=== PATIENT | female | born 1985 | race Two or more races ===

== ENCOUNTER → 2024-03-05 | Outpatient (CLI) | payer MEDICAID, SELFPAY ==
--- NOTE | 2024-03-05 08:00 | XR_ITS ---
Examination: MRI lumbar spine without contrast Date and time of exam: March 05, 2024 7057 hours Compared to July 26, 2021 INDICATIONS: Low back pain beginning 3 years ago increasing in severity paresthesias in the legs difficulty with walking Technique: Multiple MRI axial and sagittal sections lumbar spine. Sagittal T2-weighted images, TR 3500, TE 118 T1 weighted transverse sections, TR 688 T8.5, T2-weighted sagittal sections T1 weighted sagittal sections TR 621, TE 30 T2 axial sections, TR 4, 190, TE 84. Findings: Adequate alignment lumbar vertebral bodies on the lateral view No lumbar fracture Normal marrow signal lumbar vertebral bodies Disc desiccation at the lower 2 lumbar levels No spondylolisthesis L5-S1 7 mm extruded central disc L4-L5 4 mm central lumbar disc bulge with annular disc tear posterior central disc margin L3-L4 no disc protrusion L2-L3 no disc protrusion L1-L2 no disc protrusion IMPRESSION: L5-S1 7 mm extruded central disc L4-L5 4 mm central lumbar disc bulge with annular disc tear posterior central disc margin
== END | disposition home or self-care (01) ==
LOC: SMRI 07:51
PROVIDERS: PCP Nurse Practitioner Family; Referring Provider Nurse Practitioner Family; Visit Provider Nurse Practitioner Family
DX: M54.50 Low back pain, unspecified (principal); M51.27 Other intervertebral disc displacement, lumbosacral region; M51.369 Other intervertebral disc degeneration, lumbar region without mention of lumbar back pain or lower extremity pain
CPT/HCPCS: 72148

== ENCOUNTER → 2024-09-24 | Outpatient (CLI) | payer MEDICAID, SELFPAY ==
--- NOTE | 2024-09-24 13:00 | XR_ITS ---
Examination: Transvaginal ultrasound of the pelvis, complete Technique: Transvaginal sonographic images pelvis performed using hill scale imaging Exam date and time: September 24, 2024 1344 hours INDICATIONS: Pelvic pain 3 years, diagnosis endometriosis FINDINGS: Uterus 10.1 cm, endometrial stripe 1.0 cm No uterine mass or intrauterine gestation Right ovary 3.0 cm arterial flow 13 mm follicular cyst smaller follicles Left ovary 2.1 cm arterial flow small follicles IMPRESSION: Negative examination.
--- NOTE | 2024-09-24 13:00 | XR_ITS ---
Examination: Abdomen sonogram, complete Date and time of exam: September 24, 2024 1331 hours INDICATIONS: Left upper abdominal pain beginning 2 years ago, cholecystectomy. Technique: Multiple real-time grayscale transabdominal sonographic images of the abdomen have been obtained. Findings: Absent gallbladder. Normal common bile duct 0.5 cm Pancreatic head 1.9 cm Aorta not enlarged. Liver 13.6 cm fatty infiltration. Normal hepatopedal portal venous flow Patent IVC Right kidney 11.8 cm renal cortex 1.8 cm Left kidney 10.5 cm cortex 1.8 cm Mild left renal parenchymal scar formation Spleen 9.6 cm IMPRESSION: Normal common bile duct Liver normal size fatty infiltration.
== END | disposition home or self-care (01) ==
LOC: CDIM 13:04
DX: K76.0 Fatty (change of) liver, not elsewhere classified (principal); R10.2 Pelvic and perineal pain
CPT/HCPCS: 76700; 76830

== ENCOUNTER 2024-11-10 09:47 | Emergency (ER) | payer MEDICAID, SELFPAY ==
[2024-11-10 09:47] VITALS: BMI 23.8
[2024-11-10 10:24] VITALS: BP 121/62; PULSE 64; RESP 18; TEMP 37.1; O2SAT 98
--- NOTE | 2024-11-10 10:58 | EDNOTE_ITS ---
ED Female Urogenital RME/HPI General Chief complaint: Urogenital-Female Stated complaint: PAIN WITH URINATION x 1 DAYS Time Seen by Provider: 11/10/24 09:54 Arrival date/time: 11/10/24 09:47 This is a 39-year-old female that comes into the emergency room with complaints of dysuria, urinary frequency, urgency oliguria. Patient states that she has been having frequent UTIs. Her primary doctor is sending her to a urologist. Patient states that her last UTI was about a month ago. Patient denies any other symptoms. Related Data Previous Rx's ?Medication ?Instructions ?Recorded acetaminophen 500 mg capsule 1,000 mg (2 x 500 mg) PO Q6H PRN 07/26/21 fever or pain #30 caps cyclobenzaprine 10 mg tablet 10 mg PO TID PRN muscle s pasm #30 07/26/21 tabs ibuprofen 800 mg tablet 800 mg PO Q8H PRN pain #30 t abs 01/12/23 Allergies Allergy/AdvReac Type Severity Reaction Status Date / Time No Known Allergies Allergy Verified 11/10/24 09:50 Review of Systems Review of Systems Systems Reviewed: All systems reviewed, normal except as documented Past Medical History Past Medical History NEUROLOGIC: Negative Neurological Disorders or Seizures CARDIAC: Negative Cardiac Disorders or Congestive Heart Failure RESPIRATORY: Negative Chronic Obstructive Pulmonary Disease (COPD) GASTROINTESTINAL: Positive Gastrointestinal Disorders (CHRONIC CONSTIPATION); Negative Hepatitis or Colorectal Cancer GENITOURINARY: Negative Genitourinary Disorders, Renal Disease or Prostate Cancer REPRODUCTIVE: Positive Previous Pregnancies; Negative Breast Cancer, Endometriosis, Pelvic Inflammatory Disease, Testicular Cancer or Uterine Prolapse MUSCULOSKELETAL: Negative Musculoskeletal Disorders, Bone Cancer or Carpal Tunnel Syndrome ENT: Negative Cataracts ENDOCRINE: Negative Endocrine Disorders, Diabetes Mellitus Type 1 or Diabetes Mellitus Type 2 HEMATOLOGIC: Negative Blood Disorders or Anemia OTHER HISTORY: Positive Hospitalization (CHILDBIRTH); Negative Autoimmune Disease, Down Syndrome, Developmental Delay, Shingles, Falls, Blood Transfusions, Blood Transfusion Reaction, Anesthesia Reactions, Organ Transplant, Chemotherapy, Radiation Therapy, Hyperbaric Therapy, MRSA, VRSA, Vancomycin-Resistant Enterococci, Human Immunodeficiency Virus (HIV), Chicken Pox, Measles, Mumps, Rubella (Welsh Measles), Pertussis, Clostridium Difficile, Cancer, Breast Cancer, Cervical Cancer, Colorectal Cancer, Lung Cancer, Ovarian Cancer, Prostate Cancer or Testicular Cancer Family History FAMILY HISTORY: Negative Family Psychiatric Problems, Family Respiratory Disorders, Family Cardiac Disorders, Family Gastrointestinal Problems, Family Cancer, Family Surgery or Family Anesthesia Reaction Surgical History SURGICAL: Positive Section; Negative Cardiac Surgery, Open Heart Surgery, Coronary Artery Bypass Graft, Valve Replacement, Vascular Surgery, Coronary Stent, Cardiac Catheterization, Pacemaker, Angiogram, Auto Implanted Cardiovert Defib, Carotid Endarterectomy, Endocrine Surgery, Thyroidectomy, Ear Surgery, Tympanostomy Tube, Eye Surgery, Nose Surgery, Oral Surgery, Tonsillectomy, Adenoidectomy, Cochlear Implant, Corneal Transplant, Throat Surgery, Abdominal Surgery, Tracheostomy, Gastric Bypass Surgery, Gastrostomy, Bowel Surgery, Nephrectomy, Transurethral Resection, Joint Replacement, Amputation, Open Reduction Internal Fixation, Arthroscopy, Neurologic Surgery, Brain Shunt, Mastectomy, Lumpectomy, Hysterectomy, Tubal Ligation or Organ Transplant Social History SMOKING STATUS: Never smoker ED Exam Narrative Physical exam: VITAL SIGNS: Reviewed. GENERAL APPEARANCE: Alert and interactive, follows commands, no acute distress HEAD AND FACE: Non-traumatic. ENT: PERRL, conjuctiva pink and clear, eyelid no trauma, Mucous membrane moist. NECK: Supple, nontender, no nuchal rigidity. CHEST: No tenderness, no crepitus, no paradoxical movement, no retractions. LUNGS: breathing even and unlabored HEART: Regular rate, cap refill less than 2 seconds ABDOMEN: Soft, nondistended, no guarding, nontender NEUROLOGICAL: Gross motor function intact sensory function intact, Appropriate for age. MUSCULOSKELETAL: low back nontender, full range of motion. EXTREMITIES: No redness no swelling no skin breakdown on bilateral foot and leg. Distal neurovascular status intact bilateral foot SKIN: Color pink, dry, no rash Course Quality Measures none Orders Category Date Time Status HCG Qualitative,Urine Stat Lab 11/10/24 11:03 Completed Urinalysis, C/S if Indicated Stat Lab 11/10/24 11:03 Completed Urine Culture Stat Lab 11/10/24 11:03 Completed Vital Signs Vital signs: Vital Signs Temperature 98.7 F 11/10/24 10:24 Pulse Rate 64 11/10/24 10:24 Respiratory Rate 18 11/10/24 10:24 Blood Pressure 121/62 11/10/24 10:24 Pulse Oximetry (%) 98 11/10/24 10:24 Oxygen Delivery Method Room Air 11/10/24 10:24 Urogenital - Female MDM Narrative MDM Narrative:: Spoke to patient at length. Patient just finished antibiotics. Her urine does not look infected. I will send for urine culture. Patient is getting chronic UTIs. However she may not be having infections and just has dysuria. Patient is currently working with primary doctor to be sent to a urologist. I talked to patient about antibiotics and she show she does not want antibiotics at this time we will hold off and wait for urine culture with primary provider. Patient told to come back to the emergency room if symptoms change or worsen. Patient verbalized understanding Dragon dictation: Although this document has been carefully reviewed, there may still be some phonetic and other typographical errors. These errors are purely grammatical due to imperfections in the software program and should not be construed in any way to compromise the substance of the patient's medical care during this visit. Patient data External records reviewed:: [facility] previous records Clinical information provided by:: patient Social determinants that could affect healthcare access:: none Patient has the following chronic illnesses:: None How is presenting disease/condition affected by chronic disease/condition?: no chronic disease Evaluation data The following diagnostics were reviewed and interpreted by me:: lab results Lab and/or radiology exams considered but not ordered:: None Interpretation Summary: See note Medications / Prescriptions Medications or Prescriptions considered but not ordered:: None Medication administrations:: None Consultations Consultation(s) initiated? (list below): No Diagnosis Urogenital Female Differential Diagnosis: urinary tract infection, cystitis and other Most likely diagnosis given after review of the tests above:: UTI Admission Indicated Admission indicated?: not indicated Admission Request Was there a request for admission?: No Disposition Plan Disposition Plan: Discharge Discharge Attestation Discharge Attestation: The patient and all family members were given an opportunity to ask questions and understood the discharge instructions. Discharge instructions specifically effects, indications for sooner follow up or return to the emergency department, and the expected course of current diagnosis. Patient condition: Stable Discharge Plan Plan Patient Disposition: HOME (Self Care) Patient condition on transfer: Stable Prescriptions/Referrals Prescriptions/Med Rec: No Action cyclobenzaprine 10 mg tablet 10 mg PO TID PRN (Reason: muscle spasm) Qty: 30 0RF acetaminophen 500 mg capsule 1,000 mg PO Q6H PRN (Reason: fever or pain) Qty: 30 0RF ibuprofen 800 mg tablet 800 mg PO Q8H PRN (Reason: pain) Qty: 30 0RF Referrals: Palma Latham FNP-C [Primary Care Provider] - In 1 week Problem List Clinical Impression: Dysuria Patient/Caregiver Discharge Instructions Discharge Activity: activity as tolerated Education Materials: Dysuria Additional Instructions: Follow-up with urine culture with primary provider. Rosalind un jesus con archibald medico de cabecera en las proximas 24-48 horas. Regrese a la greg de emergencias si hay evidencia de que los signos o sintomas empeoran. Print Language: Tajik Stand Alone Forms: Rubia Award Info., Patient Portal Info Letter PA/FITNESS CLUB MANAGER Supervising Physician PA/FITNESS CLUB MANAGER Supervising Physician: segun
[2024-11-10 11:34] LABS: Collection Type, Urine Voided; RBC,Urine 0 /hpf (0-3)
[2024-11-10 11:50] LABS: Bacteria,Urine Rare; Bilirubin,Urine Negative (Negative); Blood,Urine Trace (Negative); Clarity,Urine Clear (Clear/Hazy); Color,Urine Lt-Yellow (Lt Yel-Yel); Culture Indicated,Urine Not Indicated; Glucose, Urine Negative (Negative); Ketones,Urine Negative (Negative); Leukocyte Esterase,Urine Negative (Negative); Nitrite,Urine Negative (Negative); PH,Urine 6.5 (5.0-7.0); Protein,Urine Negative (Neg - Trace); Specific Gravity,Urine 1.003 (1.001-1.035); Squamous Epithelial Cell,Urine 1 /hpf (0-5); Urobilinogen,Urine Negative mg/dL (0.0-1.0); WBC,Urine < 1 /hpf (0-5)
[2024-11-10 11:51] LABS: HCG Qualitative,Urine Negative
== END 2024-11-10 13:56 | disposition home or self-care (01) ==
PROVIDERS: Nurse Practitioner Family; Emergency Provider Emergency Medicine
DX: R30.0 Dysuria (principal); Z87.440 Personal history of urinary (tract) infections
CPT/HCPCS: 81001; 81025; 87086; 99283